=== PATIENT | female | born 1970 | race Hispanic/Latino ===

== ENCOUNTER → 2021-01-16 | Day surgery (SDC) | payer BC ==
[~2021-01-16] MED LIST: MAGNESIUM PO; OR PHACO EYE KIT ONE; POTASSIUM PO; PREOP PHACO EYE KIT ONE
[2021-01-16 12:30] VITALS: BP 118/79
== END | disposition home or self-care (01) ==
LOC: OR 10:32
PROVIDERS: ATTEND Ophthalmology
DX: H25.11 Age-related nuclear cataract, right eye (principal); Z01.812 Encounter for preprocedural laboratory examination; Z20.822 Contact with and (suspected) exposure to COVID-19
CPT/HCPCS: 66984; U0002 ×2; V2632

== ENCOUNTER 2022-06-25 09:48 | Emergency (ER) | payer SELFPAY ==
[~2022-06-25] VITALS: Ht 154.9 cm; Wt 63.5 kg
[~2022-06-25 09:48] MED LIST changes: -OR PHACO EYE KIT ONE; -PREOP PHACO EYE KIT ONE
[2022-06-25] MEDS ORDERED: KETOROLAC TROMETHAMINE 30 MG/ML VIAL IV STA (10:16)
[2022-06-25] MEDS ORDERED: KETOROLAC TROMETHAMINE 30 MG/ML VIAL ONE (11:32)
[2022-06-25] MEDS ORDERED: KETOROLAC TROME10 MG PO (11:44)
== END 2022-06-25 11:54 | disposition home or self-care (01) ==
LOC: FSED 10:16
DX: R10.31 Right lower quadrant pain (principal)
CPT/HCPCS: 74176; 80048; 80076; 81003; 85025; 99283; J1885